=== PATIENT | male | born 1965 ===

== ENCOUNTER 2018-03-18 08:14 | Outpatient (CLI) | payer OTHER ==
[~2018-03-18] VITALS: Ht 165.1 cm; Wt 81.6 kg
== END 2018-03-18 08:35 | disposition home or self-care (01) ==
LOC: OFIC 805 08:14
DX: J39.2 Other diseases of pharynx (principal)

== ENCOUNTER 2018-12-04 12:10 | Outpatient (CLI) | payer OTHER ==
[~2018-12-04] VITALS: Ht 152.4 cm; Wt 79.4 kg
== END 2018-12-04 12:25 | disposition home or self-care (01) ==
LOC: OFIC 805 12:10
DX: H69.90 Unspecified Eustachian tube disorder, unspecified ear (principal); G44.52 New daily persistent headache (NDPH)

== ENCOUNTER 2018-12-25 10:26 | Outpatient (CLI) | payer OTHER ==
[~2018-12-25] VITALS: Ht 152.4 cm; Wt 79.4 kg
== END 2018-12-25 10:40 | disposition home or self-care (01) ==
LOC: OFIC 805 10:26
DX: H93.90 Unspecified disorder of ear, unspecified ear (principal); R22.1 Localized swelling, mass and lump, neck

== ENCOUNTER 2019-01-15 13:28 | Outpatient (CLI) | payer OTHER ==
[~2019-01-15] VITALS: Ht 152.4 cm; Wt 79.4 kg
== END 2019-01-15 13:40 | disposition home or self-care (01) ==
LOC: OFIC 805 13:28
DX: R22.1 Localized swelling, mass and lump, neck (principal); G44.89 Other headache syndrome